=== PATIENT | female | born 1960 | race Caucasian/White ===

== ENCOUNTER 2018-07-25 06:03 | Emergency (ER) | payer MEDICARE, BC ==
[2018-07-25] MEDS ORDERED: Morphine 2 MG/ML SYRINGE ONE ×2 (06:15→07:20)
[2018-07-25] MEDS ORDERED: Ondansetron PF 4 MG/2 ML Vial ONE (06:23)
[2018-07-25] MEDS ORDERED: Midazolam HCl 5 mg/ml Vial ONE (07:39)
[2018-07-25] MEDS ORDERED: Morphine 4 MG/ML VIAL ONE (07:39)
[2018-07-25] MEDS ORDERED: KETAMINE 100 MG/ML (5ML VIAL) ONE (07:52)
--- NOTE | 2018-07-25 08:02 | RAD ---
TWO VIEWS OF THE RIGHT HIP: HISTORY: Right hip dislocation and pain FINDINGS: Two views of the right hip show views of the hip at different time intervals. An earlier exam shows superior dislocation of the right hip prosthesis. The later examination shows hip prosthesis in bett er alignment. This may have relocated. No perihardware lucency is seen surrounding any of the hardw are. IMPRESSION: Possible relocation of the right hip prosthesis during the exam. POS: C
--- NOTE | 2018-07-25 08:57 | RAD ---
RIGHT HIP 2 VIEWS: Date: 07/25/18 HISTORY: 57-year-old female with history of post reduction for prior right hip prosthesis dislocation. COMPARISON: 07/25/18 at 0632 hours. FINDINGS: The previously noted dislocated femoral head prosthesis has been relocated. The complete femoral shaf t portion of the prosthesis is not included on this study. IMPRESSION: Relocation of the previously noted displaced femoral head portion of total right hip prosthesis. POS: MARTIN
== END 2018-07-25 11:27 | disposition home or self-care (01) ==
LOC: ERS 06:03
DX: T84.020A Dislocation of internal right hip prosthesis, initial encounter (principal); E11.9 Type 2 diabetes mellitus without complications; I10 Essential (primary) hypertension; W18.30XA Fall on same level, unspecified, initial encounter
CPT/HCPCS: 27265; 96374; 96375; 96376; 99152; 99153; J2250; J2270; J2405